=== PATIENT | male | born 1985 | race Caucasian/White ===

== ENCOUNTER 2018-01-31 08:59 | Inpatient (IN) | payer OTHER ==
[2018-01-31 09:41] VITALS: BMI 25.2
--- NOTE | 2018-01-31 15:32 | HP ---
COWS - Scale Resting Pulse: 2= [place] 101-120 Sweatin=Flushed/Facial Moisture Restless Observation: 3= Extraneous Movement Pupil Size: 2= Moderately Dilated Bone or Joint Aches: 2= Severe Diffuse Aches Runny Nose/ Eye Tearin= Runny Nose/Eyes GI Upset > 30mins: 3= Vomiting/Diarrhea Tremor Observation: 2= Slight Tremor Visible Yawning Observation: 2= >3x During Session Anxiety or Irritability: 2=Irritable/Anxious Goose Flesh Skin: 0=Smooth Skin COWS Score: 22 CIWA Score - CIWA Score Nausea/Vomitin Muscle Tremors: 3 Anxiety: 3 Agitation: 3 Paroxysmal Sweats: 2 Orientation: 0-Oriented Tacttile Disturbances: 2-Mild Itch/Numbness/Burn Auditory Disturbances: 2-Mild Harshness/Frighten Visual Disturbances: 2-Mild Sensitivity Headache: 2-Mild CIWA-Ar Total Score: 22 Admission ROS BHS - HPI Chief Complaint: I NEED HELP TO STOP USING HEROIN,ALCOHOL,COCAINE,SEEKING DETOX,WITHDRAWAL SYMPTOM, NEVER BEEN IN DETOX BEFORE ASTHMA PANCREATITIS LAST 3 YEARS AGO OLD FX OF LEFT RIB ADHD Allergies/Adverse Reactions: Allergies Allergy/AdvReac Type Severity Reaction Status Date / Time soy Allergy Severe Swelling Verified 01/31/18 15:04 No Known Drug Allergies Allergy Intermediate Swelling Verified 02/01/18 16:58 apple Allergy Uncoded 02/01/18 16:58 History of Present Illness: THIS 32 YEARS OLD MALE WITH HEROIN,ALCOHOL,COCAINE DEPENDENCE,SEEKING DETOX, NEVER MELBA IN DETOX BEFORE SEEKING DETOX MENTIONED - Ebola screening Have you traveled outside of the country in the last 21 days: No (N) Have you had contact with anyone from an Ebola affected area: No Have you been sick,other than usual withdrawal symptoms: No Do you have a fever: No - Review of Systems Constitutional: Chills, Loss of Appetite, Malaise, Night Sweats, Changes in sleep, Weakness, Unexplained wgt Loss EENT: reports: Tearing, Nose Congestion Respiratory: reports: No Symptoms reported, Other (ASTHMA) Cardiac: reports: Palpitations GI: reports: Diarrhea, Nausea, Vomiting, Abdominal cramping : reports: No Symptoms Reported Musculoskeletal: reports: Back Pain, Joint Pain, Muscle Pain, Joint Stiffness Integumentary: reports: Dryness, Other (ERYTNEMA LEFT FOREARM) Neuro: reports: Headache, Tremors Endocrine: reports: No Symptoms Reported Hematology: reports: No Symptoms Reported Psychiatric: reports: No Sypmtoms Reported, Judgement Intact, Mood/Affect Appropiate, Orientated x3 (INSOMNIA), Anxious, Depressed Patient History - Patient Medical History Hx Asthma: Yes (Pt is on MDI) Hx Chronic Obstructive Pulmonary Disease (COPD): No Hx Cardiac Disorders: No Hx Hypertension: No Hx Seizures: No Hx Diabetes: No Hx Gastrointestinal Disorders: No Hx Genitourinary Disorders: No Hx Sexually Transmitted Disorders: No Hx Renal Disease (ESRD): No Hx Depression: No Hx Suicide Attempt: No Hx Schizophrenia: No - Patient Surgical History Past Surgical History: No - Smoking Cessation Smoking history: Current every day smoker Have you smoked in the past 12 months: Yes Aproximately how many cigarettes per day: 20 Hx Chewing Tobacco Use: No Initiated information on smoking cessation: Yes 'Breaking Loose' booklet given: 02/02/18 - Substances Abused Heroin Route: Injection Frequency: Daily Amount used: 2-3 bags Age of first use: 25 Date of Last Use: 01/31/18 Cocaine Route: Injection Frequency: Daily Amount used: $50 and up Age of first use: 25 Date of Last Use: 01/31/18 Alcohol Route: Oral Frequency: 1-3 times last 30 days Amount used: 1-2 pints teqilla Age of first use: 9 Date of Last Use: 01/31/18 Family Disease History - Family Disease History Family Disease History: Other: Father (DSA,ALCOHOL,) Admission Physical Exam S - Vital Signs Vital Signs: Vital Signs - 24 hr 01/31/18 09:39 Temperature 98.9 F Pulse Rate 119 H Respiratory 18 Rate Blood Pressure 128/76 - Physical General Appearance: Yes: Moderate Distress, Irritable, Sweating, Anxious HEENTM: Yes: Normal ENT Inspection, JACK, Pharynx Normal Respiratory: Yes: Lungs Clear, Normal Breath Sounds, No Respiratory Distress Neck: Yes: Within Normal Limits, Supple, Trachea in good position Breast: Yes: Within Normal Limits Cardiology: Yes: Tachycardia Abdominal: Yes: Within Normal Limits, Normal Bowel Sounds, Non Tender, Soft Genitourinary: Yes: Within Normal Limits Back: Yes: Normal Inspection, Muscle Spasm Musculoskeletal: Yes: full range of Motion, Back pain, Muscle Pain Extremities: Yes: Within Normal Limits, Normal Range of Motion, Tremors Neurological: Yes: carbon electrodes supervisor II-XII NML intact, Alert, Motor Strength 5/5 Integumentary: Yes: Dry, Track [place] (ERYTHEMA LEFT FOREARM) Lymphatic: Yes: Within Normal Limits - Diagnostic (1) Opioid dependence with withdrawal Current Visit: Yes Status: Acute (2) Cocaine dependence Current Visit: Yes Status: Acute Qualifiers: Substance use status: uncomplicated Qualified Code(s): F14.20 - Cocaine dependence, uncomplicated (3) Alcohol dependence Current Visit: Yes Status: Deleted Qualifiers: Substance use status: uncomplicated Qualified Code(s): F10.20 - Alcohol dependence, uncomplicated (4) Nicotine dependence Current Visit: Yes Status: Deleted Qualifiers: Nicotine product type: cigarettes Substance use status: uncomplicated Qualified Code(s): F17.210 - Nicotine dependence, cigarettes, uncomplicated (5) Pancreatitis Current Visit: Yes Status: Acute Qualifiers: Chronicity: chronic Pancreatitis type: unspecified pancreatitis type Qualified Code(s): K86.1 - Other chronic pancreatitis (6) ADHD Current Visit: Yes Status: Acute Qualifiers: Attention deficit-hyperactivity disorder type: unspecified Qualified Code(s ): F90.9 - Attention-deficit hyperactivity disorder, unspecified type (7) Anxiety and depression Current Visit: Yes Status: Acute (8) Nicotine dependence Current Visit: Yes Status: Acute Qualifiers: Nicotine product type: cigarettes Substance use status: in withdrawal Qualified Code(s): F17.213 - Nicotine dependence, cigarettes, with withdrawal (9) Cellulitis of left forearm Current Visit: Yes Status: Acute Cleared for Admission S - Detox or Rehab [facility] Level of Care: Medically Managed Detox Regimen/Protocol: Methadone [facility] Breath Alcohol Content Breath Alcohol Content: 0 Urine Drug Screen - Results Drug Screen Negative: No Urine Drug Screen Results: REYNALDO-Cocaine, OPI-Opiates, BZO-Benzodiazepines
[2018-01-31] MEDS ORDERED: IBUPROFEN 400 MG TABLET (FP) PO PRN (15:48)
[2018-01-31] MEDS ORDERED: MAGNESIUM CITRATE 300 ML BOTTLE PO PRN (15:48)
[2018-01-31] MEDS ORDERED: P-EPHED 60MG/TRIPROLIDI 2.5MG TABLET PO PRN (15:48)
[2018-01-31] MEDS ORDERED: MAGNESIUM HYDROX 2400MG/30ML ORAL SUSPENSION 30 ML CUP PO PRN (15:48)
[2018-01-31] MEDS ORDERED: MENTHOL/PHENOL 1 EACH UD MM PRN (15:48)
[2018-01-31] MEDS ORDERED: METHADONE HCL 10 MG TABLET (FOR DETOX USE ONLY) PO ONE ×2 (15:48→23:00)
[2018-01-31] MEDS ORDERED: LOPERAMIDE HCL 2 MG CAPSULE PO PRN (15:48)
[2018-01-31] MEDS ORDERED: guaiFENesin/D-METHORPHAN HB 10 ML UNIT-DOSE CUPS PO PRN (15:48)
[2018-01-31] MEDS ORDERED: METHADONE HCL 10 MG TABLET (FOR DETOX USE ONLY) ONE (19:27)
[2018-01-31] MEDS: diazePAM 5 MG TABLET PO PRN (19:38)
[2018-01-31] MEDS: CYCLOBENZAPRINE HCL 10 MG TABLET (FP) PO PRN ×2 (19:38→22:06)
[2018-01-31] MEDS ORDERED: MELATONIN 5 MG TABLETS PO PRN (22:00)
[2018-01-31] MEDS: cloNIDine HCL 0.1 MG TABLET PO SCH (22:06)
[2018-01-31] MEDS: THIAMINE HCL 100 MG TABLET (FP) PO SCH (22:06)
[2018-01-31 22:50] LABS: URINE APPEARANCE TURBID; URINE BILIRUBIN NEGATIVE (<2.0 mg/dL); URINE BLOOD NEGATIVE (NEGATIVE); URINE COLOR RED; URINE GLUCOSE (UA) NEGATIVE (NEGATIVE); URINE KETONE NEGATIVE (NEGATIVE); URINE LEUK ESTERASE NEGATIVE (NEGATIVE); URINE NITRITE NEGATIVE (NEGATIVE); URINE PROTEIN NEGATIVE (NEGATIVE); URINE UROBILINOGEN NEGATIVE mg/dL (0.2-1.0)
[2018-01-31] MEDS: MAG HYDROX/AL HYDROX/SIMETH 30 ML UNIT-DOSE CUP PO PRN (23:37)
[2018-02-01] MEDS: ACETAMINOPHEN 325 MG TABLET (FP) PO PRN (05:30)
[2018-02-01] MEDS: diazePAM 5 MG TABLET PO PRN ×4 (05:31→22:05)
[2018-02-01] MEDS: NICOTINE POLACRILEX 2 MG GUM BUC PRN (06:05)
[2018-02-01] MEDS ORDERED: NITROGLYCERIN SUBLINGUAL 1/150 0.4 MG TAB SL ONE (07:02)
--- NOTE | 2018-02-01 07:54 | PN ---
[facility] Progress Note Note: Patient complained of chest pain. Vital Signs Temperature 97.0 F L 02/01/18 06:09 Pulse Rate 95 H 02/01/18 06:41 Respiratory Rate 16 02/01/18 06:41 Blood Pressure 104/71 02/01/18 06:41 O2 Sat by Pulse Oximetry (%) 98% Action: EKG Nitroglycerin 0.4mg sublingual given Patient verbalized relieve after dose of Nitrostat. Patient instructed to report chest webb or discomfort. Ongoing monitoring.
--- NOTE | 2018-02-01 09:51 | CONSULT ---
[facility] Psychiatric Consult - Data Date of interview: 02/01/18 Admission source: [facility] Identifying data: Pt. is a 32 year old single male, father of three, unemployed and currently homeless. This is patient's first admission to [facility]. Pt. admitted to detox for alcohol, cocaine, opiate, and PCP dependence. Substance Abuse History: Following information confirmed with Mr. Jeffers: - Smoking Cessation. Smoking history: Current every day smoker. Have you smoked in the past 12 months: Yes. Aproximately how many cigarettes per day: 20. Hx Chewing Tobacco Use: No. Initiated information on smoking cessation: Yes. ' Breaking Loose' booklet given: 07/29/16. - Substances Abused. Heroin. Route: Injection. Frequency: Daily. Amount used: 10 bags. Age of first use: 25. Date of Last Use: 07/28/16. Alcohol. Route: Oral. Frequency: Daily. Amount used: 1-2 pints cognac. Age of first use: 8. Date of Last Use: . Cocaine. Route: Smoking. Frequency: Daily. Amount used: 1 gram. Age of first use: 25. Date of Last Use: 07/28/16. Marijuana/Hashish. Route: Smoking. Frequency: Daily. Amount used: 1-2 grams. Age of first use: 8. Date of Last Use: 07/29/16. PCP. Route: Smoking. Frequency: 1-3 times last 30 days. Amount used: 1-2 joints. Age of first use: 17. Date of Last Use : 07/22/16 Medical History: Asthma. Psychiatric History: Pt. denies h/o psychiatric hospitalization, suicide attempt , and outpatient care. Physical/Sexual Abuse/Trauma History: Denies. Mental Status Exam - Mental Status Exam Alert and Oriented to: Time, Place, Person Cognitive Function: Good Patient Appearance: Unkempt Mood: Withdrawn Affect: Mood Congruent Patient Behavior: Fatigued, Asleep (Pt. able to be awaken to complete interview. ) Speech Pattern: Delayed, Slurred Voice Loudness: Moderately Soft/Quiet Thought Process: Goal Oriented Thought Disorder: Not Present Hallucinations: Denies Suicidal Ideation: Denies Homicidal Ideation: Denies Insight/Judgement: Poor Sleep: Fair Appetite: Fair Muscle strength/Tone: Normal Gait/Station: Normal Psychiatric Findings - Problem List ([place] 1, 2,3) (1) Substance induced mood disorder Current Visit: Yes Status: Suspected (2) Alcohol dependence Current Visit: Yes Status: Acute (3) Cocaine dependence Current Visit: Yes Status: Acute (4) Nicotine dependence Current Visit: Yes Status: Acute (5) Opioid dependence with withdrawal Current Visit: Yes Status: Acute - Initial Treatment Plan Initial Treatment Plan: Psychoeducation provided. Detoxification provided. Observation.
[2018-02-01] MEDS ORDERED: METHADONE HCL 10 MG TABLET (FOR DETOX USE ONLY) PO ONE (10:00)
[2018-02-01] MEDS: cloNIDine HCL 0.1 MG TABLET PO SCH ×2 (10:10→22:06)
[2018-02-01] MEDS: NICOTINE 14 MG/24 HOURS TOPICAL PATCH TD SCH (10:11)
[2018-02-01] MEDS: PRENATAL VITAMINS W/ FOLIC ACID TABLET (FP) PO SCH (10:11)
[2018-02-01 10:30] LABS: HEMATOCRIT 35.3 % (35.4-49); HEMOGLOBIN 11.9 GM/dL (11.7-16.9); MCH 30.8 pg (25.7-33.7); MCHC 33.6 g/dl (32.0-35.9); MEAN CELL VOLUME 91.6 fl (80-96); PLATELET COUNT 359 K/MM3 (134-434); RBC 3.85 M/mm3 (4.00-5.60); RDW 15.8 % (11.9-15.9); WHITE BLOOD COUNT 6.8 K/mm3 (4.0-10.0)
--- NOTE | 2018-02-01 11:07 | EKG ---
Test Reason : Blood Pressure : / mmHG Vent. Rate : 116 BPM Atrial Rate : 116 BPM P-R Int : 136 ms QRS Dur : 086 ms QT Int : 332 ms P-R-T Axes : 063 086 039 degrees QTc Int : 461 ms SINUS TACHYCARDIA OTHERWISE NORMAL ECG NO PREVIOUS ECGS AVAILABLE Confirmed by LEORA BIRCH MD ([id number]) on 02/01/2018 11:07:36 AM Referred By: Confirmed By:LEORA BIRCH MD
--- NOTE | 2018-02-01 11:07 | EKG ---
Test Reason : Blood Pressure : / mmHG Vent. Rate : 101 BPM Atrial Rate : 101 BPM P-R Int : 136 ms QRS Dur : 086 ms QT Int : 352 ms P-R-T Axes : 050 072 021 degrees QTc Int : 456 ms SINUS TACHYCARDIA POSSIBLE LEFT ATRIAL ENLARGEMENT BORDERLINE ECG WHEN COMPARED WITH ECG OF 31-JAN-2018 19:55, NO SIGNIFICANT CHANGE WAS FOUND Confirmed by LEORA BIRCH MD ([id number]) on 02/01/2018 11:07:42 AM Referred By: Confirmed By:LEORA BIRCH MD
[2018-02-01 11:09] LABS: CHLORIDE 102 mmol/L (98-107); POTASSIUM 4.1 mmol/L (3.5-5.1); SODIUM 140 mmol/L (136-145)
[2018-02-01 11:24] LABS: ALBUMIN 3.3 g/dl (3.4-5.0); ALK PHOS 94 U/L (45-117); ANION GAP 11 (8-16); BILIRUBIN,TOTAL 0.2 mg/dL (0.2-1.0); BLOOD UREA NITROGEN 20 mg/dL (7-18); CALCIUM 8.8 mg/dL (8.5-10.1); CO2 27 mmol/L (21-32); CREATININE 0.8 mg/dL (0.7-1.3); GLUCOSE,RANDOM 80 mg/dL (74-106); SGOT/AST 39 U/L (15-37); SGPT/ALT 80 U/L (12-78); TOT PROT 6.8 g/dl (6.4-8.2)
--- NOTE | 2018-02-01 15:03 | PN ---
[facility] CIWA - CIWA Score Nausea/Vomitin-No Nausea/No Vomiting Muscle Tremors: 3 Anxiety: 4-Mod. Anxious/Guarded Agitation: 0-Normal Activity Paroxysmal Sweats: 3 Orientation: 0-Oriented Tacttile Disturbances: 3-Moderate Itch/Numb/Burn Auditory Disturbances: 2-Mild Harshness/Frighten Visual Disturbances: 0-None Headache: 0-None Present CIWA-Ar Total Score: 15 BHS COWS - Scale Resting Pulse: 1= [place] 81-100 Sweatin= Chills/Flushing Restless Observation: 1= Difficult to Sit Still Pupil Size: 0= Normal to Room Light Bone or Joint Aches: 0= None Runny Nose/ Eye Tearin= None GI Upset > 30mins: 1= Stomach Cramp Tremor Observation of Outstretched Hands: 2= Slight Tremor Visible Yawning Observation: 1= 1-2x During Session Anxiety or Irritability: 2=Irritable/Anxious Goose Flesh Skin: 3=Piloerection COWS Score: 12 BHS Progress Note (SOAP) Subjective: Tremors, Sweating, Anxious, Fatigue. Objective: PATIENT A & O X 3, OBSERVED AMBULATING ON UNIT. NO ACUTE DISTRESS. 02/01/18 15:05 Vital Signs Temperature 96.8 F L 02/01/18 14:15 Pulse Rate 91 H 02/01/18 14:15 Respiratory Rate 18 02/01/18 14:15 Blood Pressure 96/61 02/01/18 14:15 O2 Sat by Pulse Oximetry (%) Laboratory Tests 01/31/18 02/01/18 02/01/18 22:30 07:00 07:00 WBC 6.8 RBC 3.85 L Hgb 11.9 Hct 35.3 L MCV 91.6 MCH 30.8 MCHC 33.6 RDW 15.8 Plt Count 359 MPV 8.0 Sodium Potassium Chloride Carbon Dioxide Anion Gap BUN Creatinine Creat Clearance w eGFR Random Glucose Calcium Total Bilirubin AST ALT Alkaline Phosphatase Total Protein Albumin Urine Color Red Urine Appearance Turbid Urine pH 5.0 Ur Specific [place] 1.020 Urine Protein Negative Urine Glucose (UA) Negative Urine Ketones Negative Urine Blood Negative Urine Nitrite Negative Urine Bilirubin Negative Urine Urobilinogen Negative Ur Leukocyte Esterase Negative RPR Titer HIV 1&2 Antibody Screen Negative HIV P24 Antigen Negative 02/01/18 02/01/18 07:00 07:00 WBC RBC Hgb Hct MCV MCH MCHC RDW Plt Count MPV Sodium 140 Potassium 4.1 Chloride 102 Carbon Dioxide 27 Anion Gap 11 BUN 20 H Creatinine 0.8 Creat Clearance w eGFR > 60 Random Glucose 80 Calcium 8.8 Total Bilirubin 0.2 AST 39 H ALT 80 H Alkaline Phosphatase 94 Total Protein 6.8 Albumin 3.3 L Urine Color Urine Appearance Urine pH Ur Specific [place] Urine Protein Urine Glucose (UA) Urine Ketones Urine Blood Urine Nitrite Urine Bilirubin Urine Urobilinogen Ur Leukocyte Esterase RPR Titer Nonreactive HIV 1&2 Antibody Screen HIV P24 Antigen LABS NOTED. Assessment: 02/01/18 15:06 WITHDRAWAL SYMPTOMS. Plan: CONTINUE DETOX. INCREASE DAILY PO FLUID INTAKE.
[2018-02-01] MEDS ORDERED: EPINEPHrine 1:1,000 0.3 MG/0.3 ML SYR IM PRN (17:04)
[2018-02-01] MEDS: diphenhydrAMINE HCL 25 MG CAPSULE (FP) PO PRN (17:19)
--- NOTE | 2018-02-01 17:20 | PN ---
S Progress Note Note: Pt. is allergic to apples. Nurse reported the drank orange juice that may have been combined with apple. Benadryl and Epi-pen ordered as needed.
[2018-02-01] MEDS: CYCLOBENZAPRINE HCL 10 MG TABLET (FP) PO PRN (22:05)
[2018-02-01] MEDS: THIAMINE HCL 100 MG TABLET (FP) PO SCH (22:05)
[2018-02-02] MEDS: diazePAM 5 MG TABLET PO PRN ×4 (05:35→22:06)
[2018-02-02] MEDS ORDERED: METHADONE HCL 5 MG TABLET (FOR DETOX USE ONLY) PO ONE (10:00)
[2018-02-02] MEDS: cloNIDine HCL 0.1 MG TABLET PO SCH ×2 (10:14→22:06)
[2018-02-02] MEDS: NICOTINE 14 MG/24 HOURS TOPICAL PATCH TD SCH (10:14)
[2018-02-02] MEDS: PRENATAL VITAMINS W/ FOLIC ACID TABLET (FP) PO SCH (10:14)
--- NOTE | 2018-02-02 11:04 | PN ---
[facility] CIWA - CIWA Score Nausea/Vomitin-No Nausea/No Vomiting Muscle Tremors: 4-Moderate,w/Arms Extend Anxiety: 4-Mod. Anxious/Guarded Agitation: 4-Moderately Restless Paroxysmal Sweats: 1-Minimal Palms Moist Orientation: 0-Oriented Tacttile Disturbances: 3-Moderate Itch/Numb/Burn Auditory Disturbances: 0-None Visual Disturbances: 0-None Headache: 0-None Present CIWA-Ar Total Score: 16 [facility] COWS - Scale Resting Pulse: 2= [place] 101-120 Sweatin= Chills/Flushing Restless Observation: 3= Extraneous Movement Pupil Size: 2= Moderately Dilated Bone or Joint Aches: 1= Mild Discomfort Runny Nose/ Eye Tearin= None GI Upset > 30mins: 0= None Tremor Observation of Outstretched Hands: 1= Tremor [place], Not Seen [facility] Progress Note (SOAP) Subjective: TREMORS,ANXIETY,IRRITABILITY,AGITATIONS. WANTS TO SEE PSYCH MD AGAIN--REPORTS HX OF ADHD. Objective: 02/02/18 12:47 Vital Signs Temperature 98.7 F 02/02/18 09:10 Pulse Rate 104 H 02/02/18 09:10 Respiratory Rate 16 02/02/18 09:10 Blood Pressure 102/58 02/02/18 09:10 O2 Sat by Pulse Oximetry (%) Laboratory Last Values WBC 6.8 K/mm3 (4.0-10.0) 02/01/18 07:00 RBC 3.85 M/mm3 (4.00-5.60) L 02/01/18 07:00 Hgb 11.9 GM/dL (11.7-16.9) 02/01/18 07:00 Hct 35.3 % (35.4-49) L 02/01/18 07:00 MCV 91.6 fl (80-96) 02/01/18 07:00 MCH 30.8 pg (25.7-33.7) 02/01/18 07:00 MCHC 33.6 g/dl (32.0-35.9) 02/01/18 07:00 RDW 15.8 % (11.9-15.9) 02/01/18 07:00 Plt Count 359 K/MM3 (134-434) 02/01/18 07:00 MPV 8.0 fl (7.5-11.1) 02/01/18 07:00 Sodium 140 mmol/L (136-145) 02/01/18 07:00 Potassium 4.1 mmol/L (3.5-5.1) 02/01/18 07:00 Chloride 102 mmol/L (98-107) 02/01/18 07:00 Carbon Dioxide 27 mmol/L (21-32) 02/01/18 07:00 Anion Gap 11 (8-16) 02/01/18 07:00 BUN 20 mg/dL (7-18) H 02/01/18 07:00 Creatinine 0.8 mg/dL (0.7-1.3) 02/01/18 07:00 Creat Clearance w eGFR > 60 (>60) 02/01/18 07:00 POC Glucometer 99 UNITS (80-120) 02/01/18 16:20 Random Glucose 80 mg/dL (74-106) 02/01/18 07:00 Calcium 8.8 mg/dL (8.5-10.1) 02/01/18 07:00 Total Bilirubin 0.2 mg/dL (0.2-1.0) 02/01/18 07:00 AST 39 U/L (15-37) H 02/01/18 07:00 ALT 80 U/L (12-78) H 02/01/18 07:00 Alkaline Phosphatase 94 U/L (45-117) 02/01/18 07:00 Total Protein 6.8 g/dl (6.4-8.2) 02/01/18 07:00 Albumin 3.3 g/dl (3.4-5.0) L 02/01/18 07:00 Urine Color Red 01/31/18 22:30 Urine Appearance Turbid 01/31/18 22:30 Urine pH 5.0 (5.0-8.0) 01/31/18 22:30 Ur Specific [place] 1.020 (1.001-1.035) 01/31/18 22:30 Urine Protein Negative (NEGATIVE) 01/31/18 22:30 Urine Glucose (UA) Negative (NEGATIVE) 01/31/18 22:30 Urine Ketones Negative (NEGATIVE) 01/31/18 22:30 Urine Blood Negative (NEGATIVE) 01/31/18 22:30 Urine Nitrite Negative (NEGATIVE) 01/31/18 22:30 Urine Bilirubin Negative (<2.0 mg/dL) 01/31/18 22:30 Urine Urobilinogen Negative mg/dL (0.2-1.0) 01/31/18 22:30 Ur Leukocyte Esterase Negative (NEGATIVE) 01/31/18 22:30 RPR Titer Nonreactive (NONREACTIVE) 02/01/18 07:00 HIV 1&2 Antibody Screen Negative 02/01/18 07:00 HIV P24 Antigen Negative 02/01/18 07:00 Assessment: 02/02/18 12:48 WITHDRAWAL SX Plan: CONTINUE DETOX PSYCH RE-EVAL TODAY
--- NOTE | 2018-02-02 12:47 | PN ---
Psychiatric Progress Note Vital Signs: Vital Signs Period Temp Pulse Resp BP Sys/Hough Pulse Ox Last 24 Hr 96.8 F-98.7 F 81-104 16-20 96-110/56-77 Date of Session: 02/02/18 Chief Complaint:: " I have ADD and I need adderall." HPI: Case of a 32 y/o male admitted to [address] [place] [address] for detox treatment for alcohol, cocaine,cannabis,opioid and phencyclidine dependence.Day 3 of hospitalization.Uneventful course.Reconsult was sought in response to patient's request for another meeting with the psychiatrist. ROS: Unremarkable.Patient is alert and fully oriented.Ambulatory.Visible on the unit.Conversant.No somatic complaints offered.No evidence of distress. Current Medications: Active Medications Generic Name Dose Route Start Last Admin Trade Name Freq PRN Reason Stop Dose Admin Acetaminophen 650 mg 01/31/18 15:48 02/01/18 05:30 Tylenol - PO 650 mg Q4H PRN Administration FEVER Al Hydroxide/Mg Hydroxide 30 ml 01/31/18 15:48 01/31/18 23:37 Mylanta Oral Suspension - PO 30 ml Q6H PRN Administration DYSPEPSIA Clonidine 0.1 mg 01/31/18 22:00 02/02/18 10:14 Catapres - PO 0.1 mg BID DYLAN Administration Cyclobenzaprine HCl 10 mg 01/31/18 15:52 02/01/18 22:05 Flexeril - PO 10 mg TID PRN Administration MUSCLE SPASMS Diazepam 10 mg 01/31/18 15:48 02/02/18 10:14 Valium - PO 02/03/18 15:47 10 mg Q4H PRN Administration WITHDRAWAL(CONT SUBST) Diphenhydramine HCl 25 mg 02/01/18 17:04 02/01/18 17:19 Benadryl - PO 25 mg Q6H PRN Administration FOR ITCHING Epinephrine 0.3 mg 02/01/18 17:04 Epipen 0.3mg - IM ONCE PRN Allergic reaction Eucalyptus/Menthol/Phenol/Sorbitol 1 each 01/31/18 15:48 Cepastat Lozenge - MM Q4H PRN SORE THROAT Guaifenesin 10 ml 01/31/18 15:48 Robitussin Dm - PO Q6H PRN COUGH Ibuprofen 400 mg 01/31/18 15:48 Motrin - PO Q6H PRN PAIN LEVEL 4-6 Loperamide HCl 4 mg 01/31/18 15:48 Imodium - PO Q6H PRN DIARRHEA Magnesium Citrate 300 ml 01/31/18 15:48 Citroma - PO Q48H PRN CONSTIPATION Magnesium Hydroxide 30 ml 01/31/18 15:48 Milk Of Magnesia - PO DAILY PRN CONSTIPATION Melatonin 5 mg 01/31/18 22:00 Melatonin PO HS PRN INSOMNIA Methadone HCl 5 mg 02/05/18 06:00 Dolophine - PO 02/05/18 06:01 ONCE@0600 ONE Methadone HCl 15 mg 02/03/18 10:00 Dolophine - PO 02/03/18 10:01 ONCE ONE Methadone HCl 10 mg 02/04/18 10:00 Dolophine - PO 02/04/18 10:01 ONCE ONE Nicotine 14 mg 02/01/18 10:00 02/02/18 10:14 Nicoderm Patch - TD Not Given DAILY DYLAN Nicotine Polacrilex 2 mg 02/01/18 06:01 02/01/18 06:05 Nicorette Gum - BUC 2 mg Q2H PRN Administration NICOTINE REPLACEMENT RX Multivit/Folic Acid/Iron 1 tab 02/01/18 10:00 02/02/18 10:14 Vitamins (Sjr) - PO 1 tab DAILY DYLAN Administration Pseudoephedrine/Triprolidine 1 combo 01/31/18 15:48 Actifed - PO TID PRN NASAL CONGESTION Thiamine HCl 100 mg 01/31/18 22:00 02/01/18 22:05 Vitamin B1 - PO 100 mg HS DYLAN Administration Medication(s) Change(s): No indication for medications changes. Current Side Effect: No Lab tests ordered: No Lab tests reviewed: Yes Provider note:: Chart reviewed.Case presented by referring source,medical COMMISSIONS SPECIALIST Allyn.Multidisciplinary progress notes,including banking specialist Mauro' s entry of 02/01/18,are appreciated.Patient is interviewed. Total face to face time:: 25 Mental Status Exam - Mental Status Exam Alert and Oriented to: Time, Place, Person Cognitive Function: Good Patient Appearance: Well Groomed (short stature) Mood: Anxious, Apprehensive (about the loss of his identification papers) Affect: Appropriate Patient Behavior: Appropriate, Cooperative Speech Pattern: Clear, Appropriate Voice Loudness: Normal Thought Process: Goal Oriented Thought Disorder: Not Present Hallucinations: Denies Suicidal Ideation: Denies Homicidal Ideation: Denies Insight/Judgement: Poor Sleep: Well Appetite: Good Muscle strength/Tone: Normal Gait/Station: Normal Psychiatric Treatment Plan - Problem List (1) Opioid dependence with withdrawal Current Visit: Yes (2) Alcohol dependence with uncomplicated withdrawal Current Visit: Yes (3) Cocaine dependence Current Visit: Yes Qualifiers: Substance use status: uncomplicated Qualified Code(s): F14.20 - Cocaine dependence, uncomplicated (4) Nicotine dependence Current Visit: Yes Qualifiers: Nicotine product type: cigarettes Substance use status: in withdrawal Qualified Code(s): F17.213 - Nicotine dependence, cigarettes, with withdrawal (5) Substance induced mood disorder Current Visit: Yes
[2018-02-02] MEDS: CYCLOBENZAPRINE HCL 10 MG TABLET (FP) PO PRN (19:59)
[2018-02-02] MEDS: THIAMINE HCL 100 MG TABLET (FP) PO SCH (22:06)
[2018-02-02] MEDS: diphenhydrAMINE HCL 25 MG CAPSULE (FP) PO PRN (22:06)
[2018-02-03] MEDS: diazePAM 5 MG TABLET PO PRN ×3 (03:30→15:44)
[2018-02-03] MEDS ORDERED: METHADONE HCL 5 MG TABLET (FOR DETOX USE ONLY) PO ONE (10:00)
[2018-02-03] MEDS: cloNIDine HCL 0.1 MG TABLET PO SCH ×2 (10:57→22:10)
[2018-02-03] MEDS: PRENATAL VITAMINS W/ FOLIC ACID TABLET (FP) PO SCH (10:57)
[2018-02-03] MEDS: NICOTINE 14 MG/24 HOURS TOPICAL PATCH TD SCH (10:57)
--- NOTE | 2018-02-03 12:36 | PN ---
BHS Progress Note (SOAP) Subjective: Fatigue, Sweating, Anxious. Objective: PATIENT A & O X 3, OBSERVED AMBULATING ON UNIT. NO ACUTE DISTRESS. 02/03/18 12:36 Vital Signs Temperature 97.7 F 02/03/18 09:26 Pulse Rate 90 02/03/18 09:26 Respiratory Rate 18 02/03/18 09:26 Blood Pressure 116/72 02/03/18 09:26 O2 Sat by Pulse Oximetry (%) Laboratory Tests 01/31/18 02/01/18 02/01/18 22:30 07:00 07:00 WBC 6.8 RBC 3.85 L Hgb 11.9 Hct 35.3 L MCV 91.6 MCH 30.8 MCHC 33.6 RDW 15.8 Plt Count 359 MPV 8.0 Sodium Potassium Chloride Carbon Dioxide Anion Gap BUN Creatinine Creat Clearance w eGFR POC Glucometer Random Glucose Calcium Total Bilirubin AST ALT Alkaline Phosphatase Total Protein Albumin Urine Color Red Urine Appearance Turbid Urine pH 5.0 Ur Specific [place] 1.020 Urine Protein Negative Urine Glucose (UA) Negative Urine Ketones Negative Urine Blood Negative Urine Nitrite Negative Urine Bilirubin Negative Urine Urobilinogen Negative Ur Leukocyte Esterase Negative RPR Titer HIV 1&2 Antibody Screen Negative HIV P24 Antigen Negative 02/01/18 02/01/18 02/01/18 07:00 07:00 16:20 WBC RBC Hgb Hct MCV MCH MCHC RDW Plt Count MPV Sodium 140 Potassium 4.1 Chloride 102 Carbon Dioxide 27 Anion Gap 11 BUN 20 H Creatinine 0.8 Creat Clearance w eGFR > 60 POC Glucometer 99 Random Glucose 80 Calcium 8.8 Total Bilirubin 0.2 AST 39 H ALT 80 H Alkaline Phosphatase 94 Total Protein 6.8 Albumin 3.3 L Urine Color Urine Appearance Urine pH Ur Specific [place] Urine Protein Urine Glucose (UA) Urine Ketones Urine Blood Urine Nitrite Urine Bilirubin Urine Urobilinogen Ur Leukocyte Esterase RPR Titer Nonreactive HIV 1&2 Antibody Screen HIV P24 Antigen LABS NOTED. Assessment: 02/03/18 12:37 WITHDRAWAL SYMPTOMS. Plan: CONTINUE DETOX. INCREASE DAILY PO FLUID INTAKE.
[2018-02-03] MEDS: NICOTINE POLACRILEX 2 MG GUM BUC PRN (16:56)
[2018-02-03] MEDS: THIAMINE HCL 100 MG TABLET (FP) PO SCH (22:09)
[2018-02-03] MEDS: CYCLOBENZAPRINE HCL 10 MG TABLET (FP) PO PRN (22:11)
[2018-02-03] MEDS: diphenhydrAMINE HCL 25 MG CAPSULE (FP) PO PRN (23:27)
[2018-02-04] MEDS ORDERED: METHADONE HCL 10 MG TABLET (FOR DETOX USE ONLY) PO ONE (10:00)
[2018-02-04] MEDS: PRENATAL VITAMINS W/ FOLIC ACID TABLET (FP) PO SCH (10:10)
[2018-02-04] MEDS: cloNIDine HCL 0.1 MG TABLET PO SCH ×2 (10:11→22:04)
[2018-02-04] MEDS: NICOTINE 14 MG/24 HOURS TOPICAL PATCH TD SCH (10:11)
--- NOTE | 2018-02-04 12:19 | PN ---
S Progress Note (SOAP) Subjective: Tremor, chills, stomach ache, nausea, headache Objective: 02/04/18 12:17 Last Vital Signs Temp Pulse Resp BP Pulse Ox 97.1 F L 85 18 104/62 02/04/18 09:13 02/04/18 09:13 02/04/18 09:13 02/04/18 09:13 Laboratory Tests 01/31/18 02/01/18 02/01/18 22:30 07:00 07:00 WBC 6.8 RBC 3.85 L Hgb 11.9 Hct 35.3 L MCV 91.6 MCH 30.8 MCHC 33.6 RDW 15.8 Plt Count 359 MPV 8.0 Sodium Potassium Chloride Carbon Dioxide Anion Gap BUN Creatinine Creat Clearance w eGFR POC Glucometer Random Glucose Calcium Total Bilirubin AST ALT Alkaline Phosphatase Total Protein Albumin Urine Color Red Urine Appearance Turbid Urine pH 5.0 Ur Specific [place] 1.020 Urine Protein Negative Urine Glucose (UA) Negative Urine Ketones Negative Urine Blood Negative Urine Nitrite Negative Urine Bilirubin Negative Urine Urobilinogen Negative Ur Leukocyte Esterase Negative RPR Titer HIV 1&2 Antibody Screen Negative HIV P24 Antigen Negative 02/01/18 02/01/18 02/01/18 07:00 07:00 16:20 WBC RBC Hgb Hct MCV MCH MCHC RDW Plt Count MPV Sodium 140 Potassium 4.1 Chloride 102 Carbon Dioxide 27 Anion Gap 11 BUN 20 H Creatinine 0.8 Creat Clearance w eGFR > 60 POC Glucometer 99 Random Glucose 80 Calcium 8.8 Total Bilirubin 0.2 AST 39 H ALT 80 H Alkaline Phosphatase 94 Total Protein 6.8 Albumin 3.3 L Urine Color Urine Appearance Urine pH Ur Specific [place] Urine Protein Urine Glucose (UA) Urine Ketones Urine Blood Urine Nitrite Urine Bilirubin Urine Urobilinogen Ur Leukocyte Esterase RPR Titer Nonreactive HIV 1&2 Antibody Screen HIV P24 Antigen Labs noted: bun 20 Assessment: 02/04/18 12:18 Withdrawal symptoms Noted with azotemia, mild Plan: Continue detox Azotemia: encouraged to drink more water for hydration
[2018-02-04] MEDS: MAG HYDROX/AL HYDROX/SIMETH 30 ML UNIT-DOSE CUP PO PRN (13:02)
[2018-02-04] MEDS: THIAMINE HCL 100 MG TABLET (FP) PO SCH (22:03)
[2018-02-04] MEDS: CYCLOBENZAPRINE HCL 10 MG TABLET (FP) PO PRN (22:03)
[2018-02-04] MEDS: ACETAMINOPHEN 325 MG TABLET (FP) PO PRN (23:01)
--- NOTE | 2018-02-04 23:34 | PN ---
[facility] Progress Note Note: asked to see client for reported fall. client seen at bedside. denies incident or injuries. refusing to speak with provider or be examined. " I did not fall". Vital Signs Temperature 95.8 F L 02/04/18 22:03 Pulse Rate 106 H 02/04/18 22:03 Respiratory Rate 16 02/04/18 22:03 Blood Pressure 103/60 02/04/18 22:03 O2 Sat by Pulse Oximetry (%) no visible injuries noted or reported s/p reported fall fall protocol [address] refusal of txment form signed.
[2018-02-05] MEDS ORDERED: METHADONE HCL 5 MG TABLET (FOR DETOX USE ONLY) PO ONE (06:00)
[2018-02-05 07:41] VITALS: BP 101/74; PULSE 80; TEMP 97.4
--- NOTE | 2018-02-05 13:00 | PN ---
S Progress Note (SOAP) Subjective: No new complaint offered Objective: 02/05/18 12:58 Not in acute distress Vital Signs Temperature 97.4 F L 02/05/18 07:30 Pulse Rate 80 02/05/18 07:30 Respiratory Rate 18 02/05/18 07:30 Blood Pressure 101/74 02/05/18 07:30 O2 Sat by Pulse Oximetry (%) Assessment: 02/05/18 12:58 successful completion of detox Plan: For O/P rehab/Fu meetings
--- NOTE | 2018-02-05 13:03 | DS ---
[facility] Detox Discharge Summary Admission Date: 01/31/18 Discharge Date: 02/05/18 - Physical Exam Results Vital Signs: Vital Signs Temperature 97.4 F L 02/05/18 07:30 Pulse Rate 80 02/05/18 07:30 Respiratory Rate 18 02/05/18 07:30 Blood Pressure 101/74 02/05/18 07:30 O2 Sat by Pulse Oximetry (%) Pertinent Admission Physical Exam Findings: withdrawal sx - Treatment Hospital Course: Detox Protocol Followed, Detoxed Safely, Responded well, Discharged Condition Good Patient has Accepted a Rehab Referral to: Outpatient Rehab - Medication Discharge Medications: Ambulatory Orders NK [No Known Home Medication] 07/29/16 - Diagnosis (1) Alcohol dependence with uncomplicated withdrawal Status: Acute (2) Asthma Status: Acute Qualifiers: Asthma severity: mild Asthma persistence: unspecified Asthma complication type: uncomplicated Qualified Code(s): J45.909 - Unspecified asthma, uncomplicated (3) Pancreatitis Status: Acute Qualifiers: Chronicity: chronic Pancreatitis type: unspecified pancreatitis type Qualified Code(s): K86.1 - Other chronic pancreatitis (4) Cocaine dependence Status: Chronic Qualifiers: Substance use status: uncomplicated Qualified Code(s): F14.20 - Cocaine dependence, uncomplicated (5) Nicotine dependence Status: Chronic Qualifiers: Nicotine product type: cigarettes Substance use status: in withdrawal Qualified Code(s): F17.213 - Nicotine dependence, cigarettes, with withdrawal (6) Substance induced mood disorder Status: Suspected - AMA Did Patient Leave Against Medical Advice: No
== END 2018-02-05 08:36 | disposition home or self-care (01) | DRG 773 ==
LOC: YASAS 08:59 → Y3N 16:09
PROVIDERS: ADMIT Internal Medicine; ATTEND Internal Medicine
PROC: HZ2ZZZZ Detoxification Services for Substance Abuse Treatment (ICD-10-PCS; principal; 2018-01-31)
DX: F11.23 Opioid dependence with withdrawal (principal); F10.230 Alcohol dependence with withdrawal, uncomplicated; F14.20 Cocaine dependence, uncomplicated; F17.213 Nicotine dependence, cigarettes, with withdrawal; F19.24 Other psychoactive substance dependence with psychoactive substance-induced mood disorder; F32.9 Major depressive disorder, single episode, unspecified; F41.8 Other specified anxiety disorders; F41.9 Anxiety disorder, unspecified; F90.9 Attention-deficit hyperactivity disorder, unspecified type; R79.89 Other specified abnormal findings of blood chemistry; L03.114 Cellulitis of left upper limb
CPT/HCPCS: 36415; 80053; 81003; 82962; 85027; 86593; 87389; 93005; 93010; J0735